=== PATIENT | female | born 1970 | race Caucasian/White ===

== ENCOUNTER 2024-07-31 06:09 | Emergency (ER) | payer SELFPAY ==
[2024-07-31] VITALS (10 sets, daily range): BP systolic 134–169; BP diastolic 56–125
[~2024-07-31] VITALS: Ht 165.1 cm; Wt 60.0 kg
[~2024-07-31 06:09] MED LIST: AMLODIPINE BESYL5 MG PO; ATIVAN0.5 MG PO; ATORVASTATIN CA20 MG PO; FARXIGA5 MG; HYDROXYZ HCL50 MG PO; LANTUS100 UNIT; LISINOPRIL5 MG PO; METFORMIN HCL500 M1 PO; OMEGA 31000 MG PO; PAROXETINE10 MG PO; PROTONIX40 M2 PO; ZOFRAN4 MG/TAB PO
[2024-07-31 06:38] LABS: BASO% 1.1 % (0-3); HEMATOCRIT 46.4 % (37.0-47.0); HEMOGLOBIN 15.5 g/dl (12.0-16.0); IMMATURE GRANULOCYTES 0.5 % (0.0-5.0); LYMPH% 30.3 % (15-41); MEAN CORPUSCULAR HGB 27.7 pG CALC (26.0-32.0); MEAN CORPUSCULAR HGB CONC 33.4 g/dL CAL (32.0-36.0); MONO% 6.5 % (2-13); NEUT# 4.63 thou/uL (2.00-7.15); NEUT% 57.6 % (42-76); RED BLOOD COUNT 5.59 mill/uL (4.20-5.60)
[2024-07-31 06:51] LABS: ALBUMIN 4.3 g/dL (3.2-5.0); ALKALINE PHOSPHATASE 71 u/l (38-126); BILIRUBIN, TOTAL 0.7 mg/dL (0.02-1.3); BUN 20 mg/dL (7-17); BUN/CREATININE RATIO 29 (12-20 (CALC)); CARBON DIOXIDE 27 mmol/l (22-30); CHLORIDE 105 mmol/l (95-108); CREATININE 0.7 mg/dL (0.5-1.0); ESTIMATED GFR 103 ML/MIN (>=90 (CALC)); LIPASE 481 u/l (23-300); SGOT/AST 31 u/l (14-36); SODIUM 139 mmol/l (137-146); TOTAL PROTEIN 7.5 g/dL (6.3-8.2)
[2024-07-31 06:52] LABS: ANION GAP 12 (6-22 (CALC)); POTASSIUM 5.2 mmol/l (3.5-5.1)
[2024-07-31 07:57] LABS: URINE BILIRUBIN - DIPSTICK Negative (NEGATIVE); URINE BLOOD DIPSTICK Negative (NEGATIVE); URINE GLUCOSE - DIPSTICK 100 mg/dL (NEGATIVE); URINE KETONE Negative (NEGATIVE); URINE NITRITE - DIPSTICK Negative (Negative); URINE PH 6.5 (4.5-8.0); URINE PROTEIN - DIPSTICK Negative (NEG-TRACE); URINE UROBILINOGEN - DIPSTICK 0.2 E.U./dL (0.2)
[2024-07-31 08:00] LABS: URINE COLOR Yellow; URINE LEUK ESTERASE Small (NEGATIVE)
[2024-07-31 08:05] LABS: URINE RBC 0-2 RBC/hpf (0-5); URINE SQUAMOUS EPITHELIAL CELL FEW EPI/hpf (0-FEW)
[2024-07-31 08:06] LABS: URINE BACTERIA FEW hpf
[2024-07-31] MEDS ORDERED: CEPHALEXIN500 MG PO (11:37)
[2024-07-31] MEDS ORDERED: INSULIN SYR1 ML/294 SC (11:39)
[2024-07-31] MEDS ORDERED: NOVOLIN 70/30 SC (11:39)
== END 2024-07-31 09:27 | disposition home or self-care (01) | DRG 690 ==
LOC: ED 06:09
PROVIDERS: Family Medicine
DX: N39.0 Urinary tract infection, site not specified (principal); I10 Essential (primary) hypertension; E11.9 Type 2 diabetes mellitus without complications; F41.9 Anxiety disorder, unspecified; Z79.4 Long term (current) use of insulin; Z79.84 Long term (current) use of oral hypoglycemic drugs; Z95.5 Presence of coronary angioplasty implant and graft